=== PATIENT | male | born 1990 | race Caucasian/White ===

== ENCOUNTER 2017-06-08 23:14 | Emergency (ER) | payer MEDICAID ==
[~2017-06-08] VITALS: Ht 167.6 cm; Wt 75.0 kg
[~2017-06-08 23:14] MED LIST: ALPR2TAB5 PO
[2017-06-09] MEDS ORDERED: HYDROmorphone 2 MG/ML, 1ML ONE
[2017-06-09] MEDS ORDERED: HYDROmorphone 2 MG/ML, 1ML IM ONE
[2017-06-09 02:05] VITALS: BP 137/79
== END 2017-06-09 02:08 | disposition home or self-care (01) ==
LOC: ED 23:58
DX: S83.92XA Sprain of unspecified site of left knee, initial encounter (principal); S73.102A Unspecified sprain of left hip, initial encounter; S93.602A Unspecified sprain of left foot, initial encounter; M54.5 Low back pain; W19.XXXA Unspecified fall, initial encounter; Y93.89 Activity, other specified; Y92.89 Other specified places as the place of occurrence of the external cause; Y99.8 Other external cause status
CPT/HCPCS: 72110; 73502; 73564; 73590; 73630; 96372; 99284; J1170

== ENCOUNTER 2017-08-31 15:56 | Emergency (ER) | payer SELFPAY ==
[~2017-08-31] VITALS: Ht 167.6 cm; Wt 73.1 kg
[2017-08-31 16:02] VITALS: BP 149/87
[2017-08-31] MEDS ORDERED: DEXAMETHASONE 4 MG TABLET ONE (16:29)
[2017-08-31] MEDS ORDERED: DEXAMETHASONE 4 MG TABLET PO ONE (16:30)
== END 2017-08-31 16:59 | disposition home or self-care (01) ==
LOC: ED 16:53
DX: J02.0 Streptococcal pharyngitis (principal)
CPT/HCPCS: 71046; 99284